=== PATIENT | male | born 1955 | race Caucasian/White ===

== ENCOUNTER 2024-04-16 09:02 | Outpatient (OUT) | payer SELFPAY ==
--- NOTE | 2024-04-16 09:05 | XR_ITS ---
The [address] [address] Patient Name: FELIPE MOREL MRN: [id number] date: 1955 Sex: M Assigned Patient Location: [facility] Current Patient Location: Accession/Order Number: [id number] Exam Date: 04/16/2024 09:10 Report Date: 04/17/2024 05:33 At the request of: ALY BASSETT Procedure: XR foot LT min 3V PROCEDURE: XR foot LT min 3V HISTORY: Left Foot Pain COMPARISON: None. FINDINGS: BONES:Mild degenerative changes the first metatarsophalangeal joint. Tiny ossification adjacent the proximal tip of the 5th metatarsal. Small ossification within the Achilles tendon at its calcaneal insertion; heterotopic bone formation versus sequela of remote injury. No acute fracture or dislocation. SOFT TISSUES:No visible soft tissue swelling. EFFUSION:None visible. OTHER: Negative. XR/XR foot LT min 3V IMPRESSION: 1. Tiny opacifications adjacent base of 5th metatarsal; acute cortical avulsion fracture versus sequela of remote injury. Correlate for site of pain within left foot. 2. Degenerative changes. Electronically authenticated by: ARGENIS ROSEN Date: 04/17/2024 05:33
== END 2024-04-16 09:03 | disposition home or self-care (01) ==
LOC: RAD 09:02
PROVIDERS: PCP Family Medicine; Visit Provider Podiatrist Foot & Ankle Surgery
DX: M79.672 Pain in left foot (principal)
CPT/HCPCS: 73630